=== PATIENT | male | born 1945 | race Caucasian/White ===

== ENCOUNTER 2019-04-06 13:47 | Emergency (ER) | payer MEDICARE, MEDICAID ==
[2019-04-06 14:06] VITALS: BP 139/86
--- NOTE | 2019-04-06 14:46 | UC ---
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 He states he believes his left anterior chest hurts because he slept on his voice alarm clock. He denies increased shortness of breath beyond his baseline, no chest heaviness, diaphoresis, nausea nor vomiting. Denies pleuritic chest pain nor calf swelling. - History of Current Complaint Chief Complaint: UCGeneralIllness Stated Complaint: LEFT SIDE PAIN,BLOOD IN SPUTUM Time Seen by Provider: 04/06/19 14:36 Hx Obtained From: Patient, Family/Foundation Digger Onset/Duration: Sudden Onset Timing: Intermittent Episodes - reproducable to touch Pain Intensity: 0 Associated Signs And Symptoms: Positive: Wheezing, Hemoptysis - Risk Factors Pulmonary Embolism Risk Factors: Negative Cardiac Risk Factors: Smoking - Allergies/Home Medications Allergies/Adverse Reactions: Allergies Allergy/AdvReac Type Severity Reaction Status Date / Time No Known Allergies Allergy Verified 04/06/19 14:05 Home Medications: Home Medications Albuterol 2.5MG/3ML (0.083%)* [Ventolin 2.5 MG/3 ML NEB.YAMILE*] 2.5 mg INH Q4H PRN 04/06/19 [History Confirmed 04/06/19] Albuterol HFA INHALER* [Ventolin HFA Inhaler*] 2 puff INH Q6H PRN 04/06/19 [ History Confirmed 04/06/19] Aspirin EC TAB* [Ecotrin EC Low Dose 81 MG*] 81 mg PO DAILY 04/06/19 [History Confirmed 04/06/19] Bacitracin OINTMENT* 1 applic TOPICAL BID 04/06/19 [History Confirmed 04/06/19] Budesonide/Formote 160/4.5(NF) [Symbicort 160/4.5 (NF)] 2 puff INH BID 04/06/19 [History Confirmed 04/06/19] Cholecalciferol TAB* [Vitamin D TAB*] 1,000 mg PO DAILY 04/06/19 [History Confirmed 04/06/19] Docusate CAP* [Colace Cap*] 100 mg PO QAM 04/06/19 [History Confirmed 04/06/19] Ferrous Gluconate TAB* [Fergon TAB*] 324 mg PO BID 04/06/19 [History Confirmed 04/06/19] Fluticasone NASAL SPRAY 50MCG* [Flonase NASAL SPRAY 50MCG*] 1 spray BOTH NARES DAILY 04/06/19 [History Confirmed 04/06/19] Ipratropium HFA INHALER(NF) [Atrovent Hfa Inhaler(NF)] 2 puff INH Q6H PRN [History Confirmed 04/06/19] Lactose-Reduced Food [Ensure Plus] 1 liq PO TID 04/06/19 [History Confirmed 10/24] LoraTADine TAB(NF) [Claritin 10 MG TAB(NF)] 10 mg PO DAILY 04/06/19 [History Confirmed 04/06/19] Meloxicam(NF) [Mobic(NF)] 15 mg PO QAM 04/06/19 [History Confirmed 04/06/19] Minerin Cream* [Eucerin Cream*] 1 applic TOPICAL BID PRN 04/06/19 [History Confirmed 04/06/19] Neomycin/Bacitracin/Polymyxinb [Triple Antibiotic Ointment] 28 gm TP DAILY PRN 04/06/19 [History Confirmed 04/06/19] Pantoprazole TAB (NF) [Protonix TAB (NF)] 20 mg PO DAILY 04/06/19 [History Confirmed 04/06/19] Sertraline* [Zoloft*] 150 mg PO BEDTIME 04/06/19 [History Confirmed 04/06/19] Simvastatin (NF) [Zocor (NF)] 40 mg PO BEDTIME 04/06/19 [History Confirmed 04/06] Vitamin THERAPEUTIC TAB* [Theragran TAB*] 1 tab PO DAILY 04/06/19 [History Confirmed 04/06/19] PMH/Surg Hx/FS Hx/Imm Hx - Additional Past Medical History Additional PMH: Has [address] at his apartment. Previously Healthy: No - at baseline with chronic medical problems. Respiratory History: COPD Neurological History: Other - TBI 1984 Psychological History: Depression - denies si, controlled on sertraline. - Surgical History Surgical History: Unable to Obtain/Confirm - Family History Family History: non-contributory - Social History Alcohol Use: None Substance Use Type: None Smoking Status (MU): Current Every Day Smoker Amount Used/How Often: Occasionally Cigaretts and 1-2 Cigars/Daily Review of Systems All Other Systems Reviewed And Are Negative: Yes Constitutional: Positive: Negative Skin: Positive: Negative Eyes: Positive: Negative ENT: Positive: Negative Respiratory: Positive: Shortness Of Breath - states "no worse than baseline." Cardiovascular: Positive: Chest Pain - reproducable left anterior rib pain. Gastrointestinal: Positive: Negative Genitourinary: Positive: Negative Motor: Positive: Other - utilizes electric wheelchair, spastic hemiplegia. 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 Psychological: Positive: Negative Physical Exam Triage Information Reviewed: Yes Appearance: No Pain Distress, Thin Vital Signs: Initial Vital Signs Temp 98.1 F 04/06/19 13:58 Pulse 92 04/06/19 13:58 Resp 24 04/06/19 13:58 BP 139/86 04/06/19 13:58 Pulse Ox 93 04/06/19 13:58 Vital Signs Reviewed: Yes Eye Exam: Normal ENT Exam: Normal Neck: Positive: Supple, Nontender, No Lymphadenopathy Respiratory: Positive: No respiratory distress, Wheezing - bilateral expiroatory., Other: - reproducible left anterior rib chest pain, ~6th or 7th rib.. Negative: Crackles, Rhonchi Cardiovascular: Positive: RRR, Pulses Normal Abdomen Description: Positive: Nontender, No Organomegaly, Soft Neurological: Positive: Abnormal Muscle Tone - seconcary to baseline spastic hemiplegia. Skin: Negative: Rashes Diagnostics - Radiology No standard instances Radiology Interpretation Completed By: Radiologist - IMPRESSION: 1. MINIMALLY DISPLACED LEFT LATERAL RIB FRACTURES INVOLVING AT LEAST RIBS 8 AND 9. NO PNEUMOTHORAX IS IDENTIFIED. 2. SEVERAL OLD LEFT-SIDED RIB FRACTURES. 3. THE EMPHYSEMATOUS LUNGS ARE CLEAR. Respiratory Course/Dx - Course Course Of Treatment: Evaluated with CXR and left rib x-rays. - Differential Dx/Diagnosis Differential Diagnosis/HQI/PQRI: Aspiration, Bronchitis, Exacerbation Of COPD, Pneumothorax Provider Diagnosis: Left rib fracture Discharge - Sign-Out/Discharge Documenting (check all that apply): Patient Departure All imaging exams completed and their final reports reviewed: Yes - Discharge Plan Condition: Stable Disposition: HOME Patient Education Materials: Rib Fracture (ED) Referrals: [place],Jordan, MD [Primary Care Provider] - Additional Instructions: Avoid sleeping with items in your bed. Tylenol as needed for pain. Follow-up with Dr. Frank for your rib fractures. If you develop acute shortness of breath or chest pains, call 911 and report to the Emergency Department. - Billing Disposition and Condition Condition: STABLE Disposition: Home
== END 2019-04-06 16:20 | disposition home or self-care (01) ==
LOC: UCCORT 13:47
DX: S22.32XA Fracture of one rib, left side, initial encounter for closed fracture (principal); X58.XXXA Exposure to other specified factors, initial encounter; Y93.89 Activity, other specified; Z87.820 Personal history of traumatic brain injury; Y92.003 Bedroom of unspecified non-institutional (private) residence as the place of occurrence of the external cause; G81.10 Spastic hemiplegia affecting unspecified side; Z99.3 Dependence on wheelchair; R13.10 Dysphagia, unspecified; J44.9 Chronic obstructive pulmonary disease, unspecified; F32.9 Major depressive disorder, single episode, unspecified; F17.210 Nicotine dependence, cigarettes, uncomplicated; F17.290 Nicotine dependence, other tobacco product, uncomplicated
CPT/HCPCS: 71046; 99212; G0463